=== PATIENT | female | born 1965 | race African-American/Black ===

== ENCOUNTER 2022-07-09 11:44 | Inpatient (IN) | payer OTHER ==
[~2022-07-09] VITALS: Ht 177.8 cm; Wt 167.6 kg
[2022-07-09 12:50] LABS: HEMATOCRIT. 42.5 % (36.0-48.0); HEMOGLOBIN. 13.7 g/dL (12.0-16.0); MEAN CORPUSCULAR HEMOGLOBIN 28.6 pg (28.0-32.0); MEAN CORPUSCULAR VOLUME 88.5 fL (81.0-99.0); MEAN PLATELET VOLUME 10.4 fl (7.4-10.4); PLATELET 226 x1000/uL (130-400); RED CELL DISTRIBUTION WIDTH 14.7 % (11.6-14.6)
[2022-07-09 12:59] LABS: CHLORIDE 107 mEq/L (98-107)
[2022-07-09] MEDS ORDERED: VANCOMYCIN 1G PREMIX 200 ML IV ONE (13:00)
[2022-07-09] MEDS ORDERED: PIPERACILLIN/TAZ 3.375G PREMIX 50 ML IV ONE (13:00)
[2022-07-09 13:10] LABS: BG BASE EXCESS -1.8 mmol/L (-2.0-2.0); BG CARBOXYHEMOGLOBIN 1.1 % (0.5-1.5); BG FRACTION INSPIRED OXYGEN 100; BG METHEMOGLOBIN 0.5 % (0.0-1.5); BG OXYHEMOGLOBIN 98.4 % (94.0-97.0); BG PCO2 39.4 mmHg (35.0-45.0); BG PH 7.384 (7.350-7.450); BG PO2 295.1 mmHg (75.0-100.0); BG SAMPLE SITE RIGHT BRACHIAL; BG TOTAL HEMOGLOBIN 13.9 g/dL (12.0-18.0); BG VENT MODE MASK - NRB
[2022-07-09 13:11] LABS: CREATINE KINASE 964 IU/L (26-192)
[2022-07-09 14:07] LABS: NUCLEATED RED BLOOD CELLS 1 /100 WBC
[2022-07-09 14:08] LABS: PLATELET ESTIMATE NORMAL
[2022-07-09 15:32] LABS: CLARITY URINE CLOUDY (CLEAR); COLOR URINE DARK YELLOW (YELLOW); KETONES URINE TRACE (NEGATIVE); LEUKOCYTE ESTERASE URINE 2+ (NEGATIVE); NITRITE URINE NEGATIVE (NEGATIVE); OCCULT BLOOD URINE TRACE (NEGATIVE); PROTEIN URINE 2+ (NEGATIVE); SPECIFIC GRAVITY URINE 1.021 (1.005-1.030)
[2022-07-09] MEDS: ASPIRIN 300MG SUPP PR SCH (22:28)
[2022-07-09] MEDS: ATORVASTATIN CALCIUM 40MG TABLET PO SCH (22:28)
[2022-07-10] VITALS (45 sets, daily range): BP systolic 45–156; BP diastolic 20–129
[2022-07-10] MEDS ORDERED: MEROPENEM 1,000 MG in SODIUM CHLORIDE 0.9% 100 ML IV SCH (08:30)
[2022-07-10] MEDS ORDERED: ACETAMINOPHEN 325MG TABLET PO PRN (08:30)
[2022-07-10] MEDS ORDERED: ONDANSETRON HCL 4MG/2ML INJ IV PRN (08:30)
[2022-07-10] MEDS ORDERED: VANCOMYCIN 1G PREMIX 200 ML IV SCH ×2 (08:30→09:00)
[2022-07-10] MEDS: CLOPIDOGREL 75MG TABLET PO SCH (09:00)
[2022-07-10] MEDS ORDERED: SODIUM CHLORIDE 0.9% 1,000 ML IV SCH (09:00)
[2022-07-10] MEDS ORDERED: DEXTROSE 50% WATER 50ML SYRINGE IV PRN (09:45)
[2022-07-10] MEDS: ENOXAPARIN 40MG/0.4ML SYR SUBCUT SCH (09:45)
[2022-07-10] MEDS: MEROPENEM 1000MG in NORMAL SALINE 100ML IV SCH ×2 (10:00→20:20)
[2022-07-10 10:02] LABS: HEMATOCRIT. 40.1 % (36.0-48.0); HEMOGLOBIN. 13.2 g/dL (12.0-16.0); MEAN CORPUSCULAR HEMOGLOBIN 29.4 pg (28.0-32.0); MEAN CORPUSCULAR VOLUME 89.2 fL (81.0-99.0); MEAN PLATELET VOLUME 10.1 fl (7.4-10.4); PLATELET 213 x1000/uL (130-400); RED BLOOD CELL COUNT 4.49 mill/uL (4.2-5.4); RED CELL DISTRIBUTION WIDTH 14.1 % (11.6-14.6)
[2022-07-10 10:05] LABS: CHLORIDE 110 mEq/L (98-107)
[2022-07-10] MEDS: PANTOPRAZOLE SODIUM 40 MG/VIAL IV SCH (10:05)
[2022-07-10 10:27] LABS: CREATINE KINASE MB FRACTION 3.4 ng/mL (0.5-3.6); PLATELET ESTIMATE NORMAL
[2022-07-10 10:41] LABS: BG BASE EXCESS -1.6 mmol/L (-2.0-2.0); BG CARBOXYHEMOGLOBIN 1.1 % (0.5-1.5); BG DEOXYHEMOGLOBIN 0.6 % (0.0-5.0); BG FRACTION INSPIRED OXYGEN 38; BG HCO3 ACT 22.9 mmol/L (22.0-26.0); BG METHEMOGLOBIN 0.3 % (0.0-1.5); BG OXYGEN SATURATION 99.4 % (92.0-98.5); BG PCO2 38.1 mmHg (35.0-45.0); BG PH 7.397 (7.350-7.450); BG PO2 155.2 mmHg (75.0-100.0); BG SAMPLE SITE RIGHT RADIAL; BG TOTAL HEMOGLOBIN 13.1 g/dL (12.0-18.0); BG VENT MODE NASAL CANNULA
[2022-07-10] MEDS ORDERED: DIGOXIN 500MCG/2ML AMP IV NR (11:15)
[2022-07-10] MEDS: PHENYLEPHRINE 50 MG in DEXT 5% WATER 245 ML IV PRN ×2 (11:18→18:47)
[2022-07-10] MEDS ORDERED: DIATR MEGLU/DIATRIZOATE SOLN 120ML ONE (11:18)
[2022-07-10] MEDS: BLOOD SUGAR DIAGNOSTIC STRIP TEST SCH ×3 (11:30→20:21)
[2022-07-10] MEDS: ASPIRIN 300MG SUPP PR SCH (11:38)
[2022-07-10] MEDS: INSULIN LISPRO (LOW DOSE) 100 UNITS/ML SUBCUT SCH ×2 (12:00→17:00)
[2022-07-10] MEDS ORDERED: DIGOXIN 500MCG/2ML AMP IV SCH (12:00)
[2022-07-10 14:45] LABS: *AMPHETAMINES SCREEN URINE NEGATIVE (NEGATIVE); *BARBITURATES SCREEN URINE NEGATIVE (NEGATIVE); *BENZODIAZEPINES SCREEN URINE NEGATIVE (NEGATIVE); *COCAINE SCREEN URINE NEGATIVE (NEGATIVE); CANNABINOID URINE SCREEN NEGATIVE (NEGATIVE); METHADONE URINE SCREEN NEGATIVE (NEGATIVE); OPIATES URINE SCREEN NEGATIVE (NEGATIVE); PHENCYCLIDINE URINE SCREEN NEGATIVE (NEGATIVE)
[2022-07-10] MEDS: DEXT 5%/0.9% NACL 1,000 ML IV SCH (18:48)
[2022-07-10] MEDS: INSULIN LISPRO 100 UNITS/ML SUBCUT SCH (20:00)
[2022-07-10] MEDS: ATORVASTATIN CALCIUM 40MG TABLET PO SCH (20:22)
[2022-07-10] MEDS ORDERED: BLOOD SUGAR DIAGNOSTIC STRIP TEST SCH (20:30)
[2022-07-10 23:57] LABS: CREATINE KINASE MB FRACTION 2.6 ng/mL (0.5-3.6)
[2022-07-11] VITALS (99 sets, daily range): BP systolic 34–177; BP diastolic 21–119
[2022-07-11] MEDS: BLOOD SUGAR DIAGNOSTIC STRIP TEST SCH ×6 (04:00→20:00)
[2022-07-11] MEDS: INSULIN LISPRO 100 UNITS/ML SUBCUT SCH ×6 (04:00→20:00)
[2022-07-11 05:07] LABS: HEMATOCRIT. 35.6 % (36.0-48.0); HEMOGLOBIN. 11.4 g/dL (12.0-16.0); MEAN CORPUSCULAR HEMOGLOBIN 28.7 pg (28.0-32.0); MEAN PLATELET VOLUME 9.6 fl (7.4-10.4); PLATELET 226 x1000/uL (130-400); RED BLOOD CELL COUNT 3.96 mill/uL (4.2-5.4); RED CELL DISTRIBUTION WIDTH 14.5 % (11.6-14.6)
[2022-07-11] MEDS: DEXT 5%/0.9% NACL 1,000 ML IV SCH (06:11)
[2022-07-11] MEDS: PHENYLEPHRINE 50 MG in DEXT 5% WATER 245 ML IV PRN ×3 (06:12→22:04)
[2022-07-11] MEDS ORDERED: DEXTROSE 5% WATER 1,000 ML IV SCH (07:00)
[2022-07-11] MEDS: CLOPIDOGREL 75MG TABLET PO SCH (08:18)
[2022-07-11] MEDS: MEROPENEM 1000MG in NORMAL SALINE 100ML IV SCH ×2 (08:19→21:24)
[2022-07-11] MEDS: PANTOPRAZOLE SODIUM 40 MG/VIAL IV SCH (08:19)
[2022-07-11] MEDS: ENOXAPARIN 40MG/0.4ML SYR SUBCUT SCH (08:19)
[2022-07-11] MEDS: ASPIRIN 300MG SUPP PR SCH (09:00)
[2022-07-11] MEDS: VANCOMYCIN 750MG PREMIX 150 ML IV SCH ×2 (10:22→22:56)
[2022-07-11] MEDS: SODIUM CHLORIDE 0.9% 1,000 ML IV SCH ×2 (10:30→22:56)
[2022-07-11] MEDS ORDERED: IOHEXOL-350 100 ML BOTTLE ONE (11:21)
[2022-07-11 12:25] LABS: INR 1.2; PROTHROMBIN TIME 12.4 sec (9.6-11.0)
[2022-07-11 13:10] LABS: PLATELET ESTIMATE NORMAL
[2022-07-11] MEDS: ATORVASTATIN CALCIUM 40MG TABLET PO SCH (21:24)
[2022-07-11] MEDS ORDERED: HALOPERIDOL LACTATE 5MG/ML VIAL IM PRN (22:30)
[2022-07-12] VITALS: BP 76/20
[2022-07-12] MEDS: PHENYLEPHRINE 50 MG in DEXT 5% WATER 245 ML IV PRN (00:01)
[2022-07-12 00:15] VITALS: BP 125/70
[2022-07-12 00:30] VITALS: BP 94/73
[2022-07-12] MEDS ORDERED: PHENYLEPHRINE 100 MG in DEXT 5% WATER 240 ML IV PRN (00:30)
[2022-07-12] MEDS ORDERED: PHENYLEPHRINE 100 MG in DEXT 5% WATER 250 ML IV PRN (00:45)
[2022-07-12] MEDS ORDERED: PHENYLEPHRINE 50 MG in DEXT 5% WATER 245 ML IV PRN (00:45)
[2022-07-12] MEDS ORDERED: NOREPINEPHRINE 8MG/250ML PMX 250 ML IV ONE (01:15)
[2022-07-12] MEDS ORDERED: NOREPINEPHRINE 8 MG in DEXTROSE 5% WATER 250 ML IV PRN (01:30)
== END 2022-07-12 01:25 | disposition short-term general hospital (02) | DRG 871 ==
LOC: EDBEDREQ 12:01 → ER 12:15 → EDBD 12:15 → MICUSO 13:43 → EDBEDREQTM 14:07 → EDBEDREQSVC 14:07 → EDBEDREQ 14:07 → MICUSO 07-10 11:53
PROVIDERS: ADMIT Internal Medicine; ATTEND Internal Medicine
DX: A41.9 Sepsis, unspecified organism (principal); G93.41 Metabolic encephalopathy; G93.6 Cerebral edema; J96.01 Acute respiratory failure with hypoxia; I71.02 Dissection of abdominal aorta; I21.4 Non-ST elevation (NSTEMI) myocardial infarction; I63.9 Cerebral infarction, unspecified; E44.0 Moderate protein-calorie malnutrition; N39.0 Urinary tract infection, site not specified; N17.9 Acute kidney failure, unspecified; M62.82 Rhabdomyolysis; Z68.43 Body mass index [BMI] 50.0-59.9, adult; G81.94 Hemiplegia, unspecified affecting left nondominant side; E66.01 Morbid (severe) obesity due to excess calories; F03.90 Unspecified dementia, unspecified severity, without behavioral disturbance, psychotic disturbance, mood disturbance, and anxiety; I71.21 Aneurysm of the ascending aorta, without rupture; R74.01 Elevation of levels of liver transaminase levels; I48.91 Unspecified atrial fibrillation; R65.20 Severe sepsis without septic shock; E88.09 Other disorders of plasma-protein metabolism, not elsewhere classified; I10 Essential (primary) hypertension; Z20.822 Contact with and (suspected) exposure to COVID-19; R79.89 Other specified abnormal findings of blood chemistry; I65.09 Occlusion and stenosis of unspecified vertebral artery; E04.2 Nontoxic multinodular goiter; H51.23 Internuclear ophthalmoplegia, bilateral; Z79.82 Long term (current) use of aspirin; Z82.49 Family history of ischemic heart disease and other diseases of the circulatory system
CPT/HCPCS: 36415; 36600; 70496; 70498; 71045; 71275; 74174; 74176; 76770; 78580; 80048; 80053; 80061; 80202; 80305; 81003; 82375; 82550; 82553; 82570; 82805; 82962; 83036; 83605; 83735; 83880; 84100; 84145; 84156; 84443; 84484; 85025; 85379; 87426; 87804; 93005; 93306; 93970; 99291; C9113; C9803; J1160; J1630; J1650; J2185; J2370; J2543; J3370; J7030; J7060; Q9963; Q9967; A4315